=== PATIENT | male | born 1980 | race Caucasian/White ===

== ENCOUNTER 2017-02-10 13:42 | Emergency (ER) | payer SELFPAY ==
[2017-02-10 16:21] VITALS: BP 143/78
== END 2017-02-10 16:21 | disposition home or self-care (01) ==
LOC: ED 13:42
DX: R10.12 Left upper quadrant pain (principal); R11.2 Nausea with vomiting, unspecified; R50.9 Fever, unspecified; R19.7 Diarrhea, unspecified; F12.90 Cannabis use, unspecified, uncomplicated; Z88.6 Allergy status to analgesic agent; Z88.1 Allergy status to other antibiotic agents; Z72.89 Other problems related to lifestyle
CPT/HCPCS: J2405; J7030